=== PATIENT | female | born 1980 | race Caucasian/White ===

== ENCOUNTER → 2020-01-24 16:53 | Outpatient (CLI) | payer OTHER, SELFPAY ==
--- NOTE | ~2020-01-24 | MM_ITS ---
EXAMINATION: MM scrn sylvia implant BI w blair HISTORY: Screening mammogram TECHNIQUE: Craniocaudal and mediolateral oblique 3-D tomosynthesis images with implant displacement a nd synthetic 2-D images were generated. Craniocaudal and mediolateral oblique views of the breasts wi thout implant displacement were obtained using full field digital mammography. CAD analysis was submi tted and interpreted. COMPARISON: None, baseline BREAST PARENCHYMAL COMPOSITION: The breasts are heterogeneously dense, which may obscure small masses . FINDINGS: There is no evidence of suspicious mass, calcification, or architectural distortion to sugg est malignancy in either breast. IMPRESSION: 1. No mammographic evidence of malignancy. 2. Recommend routine screening mammography in one year. BI-RADS Category 1: Negative Reviewed, dictated and finalized at location A. TOLOGIST
== END ==
PROVIDERS: Visit Provider Nurse Practitioner
DX: Z12.31 Encounter for screening mammogram for malignant neoplasm of breast (principal)
CPT/HCPCS: 77063; 77067

== ENCOUNTER → 2020-07-19 12:46 | Outpatient (CLI) | payer OTHER, SELFPAY ==
--- NOTE | ~2020-07-19 | US_ITS ---
EXAMINATION: US pelvic complete DATE: 07/19/2020 13:13 INDICATION: Missing IUD strings TECHNIQUE: Multiple transabdominal and endovaginal sonographic images of the pelvis were obtained. COMPARISON: 07/21/2017 FINDINGS: The uterus measures 9.2 x 4.4 x 5.4 cm. The endometrial complex measures 5 mm. An IUD is pr esent in the endometrial canal in expected position. The right ovary measures 2.5 x 1.2 x 1.9 cm. The left ovary measures 3.8 x 3.5 x 6.1 cm and contains a 5.3 cm cyst. There is normal vascular flow in the ovaries. There is no free fluid in the pelvis. IMPRESSION: 1. IUD in expected position. 2. 5.3 cm simple cyst of the left ovary. Follow-up ultrasound in 12 months is recommended. Reviewed, dictated and finalized at location A. IMPRESSION: 1. IUD in expected position. 2. 5.3 cm simple cyst of the left ovary. Follow-up ultrasound in 12 months is r ecommended.
== END ==
PROVIDERS: Visit Provider Nurse Practitioner
DX: Z30.431 Encounter for routine checking of intrauterine contraceptive device (principal); N83.202 Unspecified ovarian cyst, left side
CPT/HCPCS: 76856

== ENCOUNTER → 2020-09-07 15:36 | Outpatient (CLI) | payer OTHER, SELFPAY ==
--- NOTE | ~2020-09-07 | US_ITS ---
EXAMINATION: US pelvic complete DATE: 09/07/2020 15:57 INDICATION: Left-sided ovarian cyst Comparison:Ultrasound dated 07/19/2020 TECHNIQUE: Multiple transabdominal sonographic images of the pelvis performed. FINDINGS: The uterus measures 9.7 x 4.5 x 5.5 cm. There is an IUD within the endometrium. The endomet rial complex measures 4 mm. The right ovary measures 3.1 x 2.3 x 1.4 cm and the left ovary measures 2.5 x 2.1 x 1.4 cm. There ar e small follicles in each ovary. Normal doppler signal in both ovaries. There is no free fluid in the pelvis. There are no abnormal masses seen on either side. IMPRESSION: 1. Unremarkable pelvic ultrasound. IUD in expected position. Reviewed, dictated and finalized at location B.
== END ==
PROVIDERS: Visit Provider Obstetrics & Gynecology Gynecology
DX: N83.202 Unspecified ovarian cyst, left side (principal); Z97.5 Presence of (intrauterine) contraceptive device
CPT/HCPCS: 76856

== ENCOUNTER → 2021-05-20 12:15 | Outpatient (CLI) | payer OTHER, SELFPAY ==
--- NOTE | ~2021-05-20 | MM_ITS ---
EXAMINATION: MM scrn sylvia implant BI w blair HISTORY: Screening mammogram TECHNIQUE: Craniocaudal and mediolateral oblique 3-D tomosynthesis images with implant displacement a nd synthetic 2-D images were generated. Craniocaudal and mediolateral oblique views of the breasts wi thout implant displacement were obtained using full field digital mammography. CAD analysis was submi tted and interpreted. COMPARISON: 01/24/2020 BREAST PARENCHYMAL COMPOSITION: The breasts are extremely dense, which lowers the sensitivity of mammography FINDINGS: There is no evidence of suspicious mass, calcification, or architectural distortion to sugg est malignancy in either breast. There has been no suspicious interval change. IMPRESSION: 1. No mammographic evidence of malignancy. 2. Recommend routine screening mammography in one year. BI-RADS Category 1: Negative Reviewed, dictated and finalized at location A. 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
== END ==
PROVIDERS: Visit Provider Nurse Practitioner
DX: Z12.31 Encounter for screening mammogram for malignant neoplasm of breast (principal)
CPT/HCPCS: 77063; 77067

== ENCOUNTER 2022-06-04 11:48 | Outpatient (CLI) | payer SELFPAY ==
--- NOTE | ~2022-06-04 | US_ITS ---
Pelvic ultrasound. Clinical History: Pelvic swelling Technique: Realtime transabdominal and transvaginal scanning of the pelvis was performed. Color flow Doppler and Doppler spectral analysis were performed. Findings: The uterus is anteverted. IUD present in the endometrial cavity. The endometrial stripe has a thickness of 4 mm. No focal mass is identified. The right ovary measures 2.9 x 1.2 x 1.8 cm. No significant right ovarian or adnexal mass is seen. The left ovary measures 3.2 x 2.4 x 4.2 cm. Left ovarian cyst measures up to 3.1 cm in diameter. Vascular flow present in both ovaries on Doppler spectral analysis. There is no evidence of free fluid in the cul de sac. Impression: IUD in satisfactory position. 3.1 cm left ovarian cyst. Given patient age, no further follow-up required. Reviewed, dictated and finalized at [facility]. Impression: IUD in satisfactory position. 3.1 cm left ovarian cyst. Given patient age, no further follow-up required.
--- NOTE | ~2022-06-04 | MM_ITS ---
EXAMINATION: MM scrn sylvia implant BI w blair HISTORY: Screening mammogram TECHNIQUE: Craniocaudal and mediolateral oblique 3-D tomosynthesis images with implant displacement a nd synthetic 2-D images were generated. Craniocaudal and mediolateral oblique views of the breasts wi thout implant displacement were obtained using full field digital mammography. CAD analysis was submi tted and interpreted. COMPARISON: Comparison to multiple prior studies sequentially, with oldest reviewed study dated 01/14. BREAST PARENCHYMAL COMPOSITION: The breasts are extremely dense, which lowers the sensitivity of mamm ography. FINDINGS: There is no evidence of suspicious mass, calcification, or architectural distortion to sugg est malignancy in either breast. There has been no suspicious interval change. IMPRESSION: 1. No mammographic evidence of malignancy. 2. Recommend routine screening mammography in one year. BI-RADS Category 1: Negative Reviewed, dictated and finalized at location A.
== END 2022-06-04 11:49 ==
PROVIDERS: PCP Nurse Practitioner; Visit Provider Nurse Practitioner
DX: Z12.31 Encounter for screening mammogram for malignant neoplasm of breast (principal); R19.09 Other intra-abdominal and pelvic swelling, mass and lump; N83.202 Unspecified ovarian cyst, left side; Z97.5 Presence of (intrauterine) contraceptive device
CPT/HCPCS: 76856; 77063; 77067

== ENCOUNTER 2024-04-02 10:57 | Outpatient (CLI) | payer OTHER, SELFPAY ==
--- NOTE | ~2024-04-02 | MM_ITS ---
EXAMINATION: MM scrn sylvia implant BI w blair HISTORY: Screening mammogram TECHNIQUE: Craniocaudal and mediolateral oblique 3-D tomosynthesis images with implant displacement a nd synthetic 2-D images were generated. Craniocaudal and mediolateral oblique views of the breasts wi thout implant displacement were obtained using full field digital mammography. CAD analysis was submi tted and interpreted. COMPARISON: Comparison to multiple prior studies sequentially, with oldest reviewed study dated 01/14. BREAST PARENCHYMAL COMPOSITION: Dense: The breasts are extremely dense, which lowers the sensitivity of mammography. FINDINGS: There is no evidence of suspicious mass, calcification, or architectural distortion to sugg est malignancy in either breast. There has been no suspicious interval change. IMPRESSION: 1. No mammographic evidence of malignancy. 2. Recommend routine screening mammography in one year. BI-RADS Category 1: Negative Reviewed, dictated and finalized at location A. [employer]
== END 2024-04-02 10:58 | disposition home or self-care (01) ==
LOC: MICIMG 10:58
PROVIDERS: PCP Nurse Practitioner; Visit Provider Nurse Practitioner
DX: Z12.31 Encounter for screening mammogram for malignant neoplasm of breast (principal)
CPT/HCPCS: 77063; 77067

== ENCOUNTER 2024-07-19 16:31 | Emergency (ER) | payer OTHER, SELFPAY ==
[2024-07-19 16:41] VITALS: BP 117/64; PULSE 66; RESP 16; TEMP 36.5; O2SAT 100
[2024-07-19 16:50] LABS: EDUAAPPEAR Cloudy; EDUABILI Negative (Negative); EDUABLOOD 3+ (Negative); EDUACOLOR1 Red; EDUAGLUCOSE Negative (Negative); EDUAKETONE Negative (Negative); EDUALEUKO 1+ (Negative); EDUANITRATE Positive (Negative); EDUAPH 7.5; EDUAPROTEIN 3+ (Negative)
--- NOTE | 2024-07-19 17:06 | ED_ITS ---
HPI - Female Genitourinary General Chief complaint: Urogenital-Female Stated complaint: Uti Symptoms Time Seen by Provider: 07/19/24 17:00 Source: patient, RN notes reviewed and old records reviewed Mode of arrival: ambulatory Limitations: no limitations History of Present Illness HPI Narrative: 44 year old female who presents to express care with complaints of some burning after urination and some pressure to urethra. Patient reports that she has noted some pink on tissue today when she wiped and noted some blood in urine, states has IUD so normally doesn't have periods. Patient reports that she has noted to day also she has some frequency of urination. Patient denies any fevers, chill or sweats or any nausea or vomiting. Patient reports no flank pain or any abdominal or suprapubic pain. MD elicited complaint: UTI Onset (ago): day(s) (1) Location of symptoms: urethra Severity scale (1-10): 3 Quality of pain: burning Vaginal discharge: none Vaginal bleeding: none Treatment prior to arrival: none Related Data Home Medications ?Medication ?Instructions ?Recorded ?Confirmed ?Last Taken ?Type levothyroxine 25 mcg tablet mcg 07/19/24 Unknown History Allergies Allergy/AdvReac Type Severity Reaction Status Date / Time Penicillins Allergy Unknown Rash Verified 07/19/24 17:01 Review of Systems Review of Systems: CONSTITUTIONAL: Denies fever, chills, or sweats. CARDIOVASCULAR: Denies chest pain, palpitations, or edema. RESPIRATORY: Denies cough or dyspnea. GASTROINTESTINAL: Denies abdominal pain, nausea, vomiting, or diarrhea. GENITOURINARY: Reports dysuria, frequency,no urgency. Denies flank pain positive for hematuria. SKIN: Denies rash or itching. MUSCULOSKELETAL: Denies back pain or myalgia. Denies CVA tenderness NEUROLOGIC: Denies headache All systems reviewed & are unremarkable except as noted in HPI and below PMFSH Past Medical History Medical History (Updated 07/20/24 @ 17:06 by Rupa Vázquez NP) DVT (deep venous thrombosis) Hypothyroidism Surgical History Surgical History (Updated 07/20/24 @ 17:04 by Rupa Vázquez NP) Previous section x2 Social History Social History (Updated 07/20/24 @ 16:59 by Rupa Vázquez NP) Smoking status: Never smoker Alcohol intake: current Alcohol use details: social Substance use type: does not use Living arrangements: with family Gender identity (if verbalized by the patient): Female Comments At time of signature, agree with nursing past medical, surgical, social and family history. There is no relevant family history pertinent to the presenting complaint Exam Narrative: GENERAL: Well-appearing, well-nourished, and in no acute distress. HEAD: Normocephalic, atraumatic. NECK: Supple. CHEST: Clear to auscultation. No respiratory distress.SAO2 100% on room air HEART: Regular rate and rhythm. No murmur heard. Normal peripheral pulses. ABDOMEN: Soft, nontender, nondistended, normal active bowel sounds. No CVA tenderness reports pain after urination frequency and blood in urine, no suprapubic pain EXTREMITIES: Normal range of motion. No edema. SKIN: Warm, dry, no rash. NEURO: No focal deficits. Alert and oriented x3. Course Course Emergency Course: Patient is aware of diagnosis, understands and agrees to treatment plan.? Anticipatory guidance given.? Patient agrees to follow-up as directed and is aware of reasons to seek care at the emergency department. Portions of this record may have been created with voice recognition software Level of Care: Express Care Visit Vital Signs Vital signs: Vital Signs Temperature 36.5 C 07/19/24 16:41 Pulse Rate 66 07/19/24 16:41 Respiratory Rate 16 07/19/24 16:41 Blood Pressure 117/64 07/19/24 16:41 Pulse Oximetry 100 07/19/24 16:41 Temperature 36.5 C 07/19/24 16:41 Pulse Rate 66 07/19/24 16:41 Respiratory Rate 16 07/19/24 16:41 Blood Pressure 117/64 07/19/24 16:41 Pulse Oximetry 100 07/19/24 16:41 MDM - Female Genitourinary MDM Narrative Medical decision making narrative: Exam findings and UA show no acute concerns or changes; patient is non-toxic appearing and is in no distress.? Patient is appropriate for outpatient treatment and follow-up. Differential Diagnosis Differential diagnosis: Likely urinary tract infection, cystitis and other (dysuria and blood in urine) Medical Records Attestation: I reviewed the patient's medical records. Lab Data Attestation: I reviewed the patient's lab results. Lab results narrative: urine dip glucose negative bilirubin negative ketones negative specific gravity 1.020 blood 3+ pH 7.5 protein 3+ urobilinogen 1.0 nitrate positive leukocyte 1+ urine bloody in appearance Labs: Lab Results 07/19/24 Range/Units 16:48 POC Urine Color Red POC Urine Clarity Cloudy POC Urine pH 7.5 POC Ur Specif [place] 1.020 POC Urine Protein 3+ (Negative) POC Ur Glucose (UA) Negative (Negative) POC Urine Ketones Negative (Negative) POC Urine Blood 3+ (Negative) POC Urine Nitrite Positive (Negative) POC Urine Bilirubin Negative (Negative) POC Urine Urobilinogen 1.0 POC U Leukocyte Esteras 1+ (Negative) reviewed Critical Care Time Critical Care Time Critical Care Time: No Discharge Plan Discharge Clinical Impression: Urinary tract infection Qualifiers: Urinary tract infection type: site unspecified Hematuria presence: with hematuria Qualified Code(s): N39.0 - Urinary tract infection, site not specified ; R31.9 - Hematuria, unspecified Patient Disposition: Home Condition: Stable Instructions: Antibiotic Form, Urinary Tract Infection in Women (DC) Additional Instructions: Increase fluids especially cranberry juice and water Avoid caffeine and carbonated beverages Antibiotic as directed Tylenol/ibuprofen for pain or fever Follow-up with her primary care provider if further problems or concerns Recheck if you have fever over 101, nausea and vomiting. if any increase in blood noted in urine go directly to emergency room or if increased pain If your symptoms persist, change or worsen significantly before you can contact your personal physician then please, without delay, go to the emergency department for further evaluation. Follow-up with PCP in 7-10 days or sooner if needed Follow up with PCP soon in regards to your blood pressure which is elevated above threshold for referral. Blood pressure above 120/80 may indicate pre- hypertension. Patient Language: Hungarian Prescriptions: New ciprofloxacin HCl 500 mg tablet 500 mg PO Q12H Qty: 14 0RF No Action levothyroxine 25 mcg tablet Follow-up/Referrals: PHYSICIAN,WESTERN PHILOSOPHY PROFESSOR [Primary Care Provider] - Time of Disposition: 17:19 Quality Sebastián Coma Scale Eyes: Open Verbal: Oriented and Alert Motor: Follows Commands Sebastián Coma Total Score: 15
== END 2024-07-19 17:22 | disposition home or self-care (01) ==
PROVIDERS: Emergency Provider Registered Nurse
DX: N39.0 Urinary tract infection, site not specified (principal); R31.9 Hematuria, unspecified; E03.9 Hypothyroidism, unspecified; Z86.718 Personal history of other venous thrombosis and embolism
CPT/HCPCS: 81003; 87086; 87186; 99203; G0463